=== PATIENT | female | born 1995 | race Caucasian/White ===

== ENCOUNTER 2024-06-01 07:55 | Emergency (ER) | payer BC ==
[~2024-06-01] VITALS: Ht 154.9 cm; Wt 76.8 kg
[2024-06-01] MEDS ORDERED: BACT400T PO (07:59)
[2024-06-01] MEDS: LIDOCAINE W/EPINEPHRINE 1% 20ML VIAL SC ONE (09:05)
[2024-06-01 10:22] VITALS: BP 109/72; TEMP 99; O2SAT 97
== END 2024-06-01 10:28 | disposition home or self-care (01) ==
LOC: M ED 07:55
DX: N75.0 Cyst of Bartholin's gland (principal); F43.10 Post-traumatic stress disorder, unspecified; Z79.2 Long term (current) use of antibiotics

== ENCOUNTER → 2024-06-24 | Outpatient (REF) | payer BC ==
[~2024-06-24] MED LIST: BACT400T PO
[2024-06-26 16:42] LABS: HPV APTIMA Not Detected (Not Detected)
== END ==
LOC: M SFHCWAGY 17:26
PROVIDERS: ATTEND Obstetrics & Gynecology
DX: Z12.4 Encounter for screening for malignant neoplasm of cervix (principal)
CPT/HCPCS: 87624; G0123

== ENCOUNTER → 2024-11-25 | Outpatient (REF) | payer BC | LOC: M SFHCLERA 15:16 | PROVIDERS: ATTEND Internal Medicine | DX: Z53.9 Procedure and treatment not carried out, unspecified reason (principal) ==

== ENCOUNTER → 2025-02-04 | Outpatient (CLI) | payer BC | LOC: M CARPUL 13:54 | PROVIDERS: ATTEND Internal Medicine | DX: I34.0 Nonrheumatic mitral (valve) insufficiency (principal); I36.1 Nonrheumatic tricuspid (valve) insufficiency ==

== ENCOUNTER → 2025-03-30 | Outpatient (REF) | payer OTHER | LOC: M PLALAB 08:41 | PROVIDERS: ATTEND Nurse Practitioner Family | DX: Z53.9 Procedure and treatment not carried out, unspecified reason (principal) ==

== ENCOUNTER → 2025-04-05 | Outpatient (CLI) | payer OTHER ==
[2025-04-05 13:45] LABS: PLATELET COUNT, AUTOMATED 231 10^3/uL (150-450)
[2025-04-05 14:45] LABS: HIV 1&2 SCREEN NEGATIVE (NEGATIVE)
[2025-04-05 14:54] LABS: HEPATITIS C VIRUS ABY INDEX < 0.02 INDEX (<0.8)
[2025-04-05 15:02] LABS: Trichomonas vaginalis (AMP) NOT DETECTED (NEGATIVE)
[2025-04-05 15:25] LABS: GC DNA AMPLIFICATION NEGATIVE (NEGATIVE)
== END ==
LOC: M PLALAB 07:34
PROVIDERS: ATTEND Nurse Practitioner Family
DX: Z34.80 Encounter for supervision of other normal pregnancy, unspecified trimester (principal)

== ENCOUNTER → 2025-04-29 | Outpatient (REF) | payer OTHER | LOC: M PLALAB 08:29 | PROVIDERS: ATTEND Nurse Practitioner Family | DX: Z34.80 Encounter for supervision of other normal pregnancy, unspecified trimester (principal) ==

== ENCOUNTER → 2025-06-08 | Outpatient (CLI) | payer OTHER | LOC: M WHC 11:08 | PROVIDERS: ATTEND Nurse Practitioner Family | DX: Z34.80 Encounter for supervision of other normal pregnancy, unspecified trimester (principal) ==